=== PATIENT | male | born 1950 | race Caucasian/White ===

== ENCOUNTER 2019-10-16 14:17 | Outpatient (CLI) | payer OTHER ==
[2019-10-16 14:58] LABS: MICROSCOPIC NOT IND
[2019-10-16 15:06] LABS: BASOPHILS # (AUTO) 0.04 x10^3/uL (0-0.1); BASOPHILS % (AUTO) 1 % (0-1); EOSINOPHILS # (AUTO) 0.06 x10^3/uL (0-0.4); EOSINOPHILS % (AUTO) 1 % (1-7); LYMPHOCYTES # (AUTO) 1.84 x10^3/uL (1-3.4); LYMPHOCYTES % (AUTO) 22 % (22-44); MD NO; MEAN CORPUSCULAR HEMOGLOBIN 32.8 pg (27.5-34.5); MEAN CORPUSCULAR HGB CONC 33.1 g/dL (33.2-36.2); MEAN CORPUSCULAR VOLUME 99.3 fL (81-97); MEAN PLATELET VOLUME 8.1 fL (7.4-10.4); MONOCYTES # (AUTO) 0.61 x10^3/uL (0.2-0.8); MONOCYTES % (AUTO) 7 % (2-9); NEUTROPHILS # (AUTO) 5.94 x10^3/uL (1.8-6.8); NEUTROPHILS % (AUTO) 70 % (42-75); PLATELET COUNT 265 x10^3/uL (130-400); RED BLOOD COUNT 4.82 x10^6/uL (4.38-5.82); RED CELL DISTRIBUTION WIDTH 12.8 % (9.4-14.8)
[2019-10-16] MEDS ORDERED: BUPR2TAB PO (15:07)
[2019-10-16] MEDS ORDERED: TRAM50TA2 PO (15:07)
[2019-10-16] MEDS ORDERED: TIZA4CAP PO (15:07)
[2019-10-16] MEDS ORDERED: TRAZ-137 PO (15:07)
[2019-10-16] MEDS ORDERED: atorvastatin PO (15:07)
[2019-10-16 15:09] LABS: ALANINE AMINOTRANSFERASE 37 U/L (12-78); ALBUMIN 3.7 g/dL (3.4-5.0); ANION GAP 5 mmol/L (5-15); CALCIUM 9.3 mg/dL (8.5-10.1); CHLORIDE 110 mmol/L (98-107); CREATININE 1.04 mg/dL (0.7-1.3); INTERNATIONAL NORMALIZED RATIO 1.04 (0.93-1.1)
[2019-10-16 15:12] LABS: ALKALINE PHOSPHATASE 66 U/L (45-117); BILIRUBIN,TOTAL 0.6 mg/dL (0.2-1.0); TOTAL PROTEIN 8.2 g/dL (6.4-8.2)
== END 2019-10-16 23:59 | disposition home or self-care (01) ==
LOC: STAR 14:17
PROVIDERS: ATTEND Neurological Surgery
DX: C61 Malignant neoplasm of prostate (principal)
CPT/HCPCS: 36415; 80053; 81003; 85025; 85610; 85730; 87086; 93005

== ENCOUNTER 2019-10-31 08:25 | Outpatient (CLI) | payer OTHER ==
[~2019-10-31 08:25] MED LIST: BUPR2TAB PO; HYDR2TAB29 PO; TIZA4CAP PO; TRAM50TA2 PO; TRAZ-175 PO; atorvastatin PO
== END 2019-10-31 23:59 | disposition home or self-care (01) ==
LOC: RAD 08:25
PROVIDERS: ATTEND Urology
DX: C61 Malignant neoplasm of prostate (principal); N32.3 Diverticulum of bladder
CPT/HCPCS: 51600; 74430; Q9958